=== PATIENT | male | born 1980 | race Caucasian/White ===

== ENCOUNTER 2021-11-01 10:27 | Emergency (ER) | payer BC, SELFPAY ==
--- NOTE | ~2021-11-01 | CT_ITS ---
EXAMINATION: CT abdomen pelvis w con INDICATION: Right lower quadrant pain TECHNIQUE: Computed tomographic images of the abdomen and pelvis were obtained after the administrati on of 100 cc of Omnipaque 350 intravenous contrast. The dose-length product (DLP) was 225.05 mGy-cm. Automated exposure control and iterative reconstruction technique were employed. COMPARISON: None available FINDINGS: Minimal dependent atelectasis is present in the lung bases. The heart size is normal. The l iver, spleen, pancreas, gallbladder, and adrenal glands are normal. The kidneys are unremarkable. No pathologically enlarged abdominal or pelvic lymph nodes are identified. There is no free intraperiton eal gas or evidence of bowel obstruction. The appendix is normal. There is liquid stool throughout mu ch of the colon. There is a greater than normal number of fluid-filled, nondistended small bowel loop s. IMPRESSION: 1. Findings suggestive of enteritis. Normal appendix. Reviewed, dictated and finalized at location A.
[2021-11-01 10:32] VITALS: BP 132/66; PULSE 96; RESP 18; TEMP 36.6; O2SAT 99
[2021-11-01 10:52] LABS: Basophils Absolute Auto 0.1 K/mm3 (0.0-0.1); Basophils Percent Auto 0.3 % (0.2-1.2); Eosinophils Absolute Auto 0.1 K/mm3 (0-0.3); Eosinophils Percent Auto 0.8 % (0-4.4); Hematocrit 43.9 % (42.0-52.0); Hemoglobin 14.5 g/dL (14.0-18.0); Immature Granulocyte Absolute 0.06 K/mm3 (0.00-0.031); Immature Granulocyte Percent A 0.3 % (0-0.5); Lymphocytes Absolute Auto 1.38 K/mm3 (0.9-3.2); Mean Corpuscular Hemoglobin 29.8 pg (26-34); Mean Corpuscular Volume 90.3 fl (80-100); Mean Platelet Volume 8.6 fl (7.4-10.4); Monocytes Absolute Auto 1.3 K/mm3 (0.1-0.6); Monocytes Percent Auto 7.5 % (2.6-8.5); Neutrophils Absolute Auto 14.3 K/mm3 (1.3-6.7); Neutrophils Percent Auto 83.1 % (45.5-73.1); Platelet Count Result 307 k/mm3 (150-375); Red Blood Count 4.86 M/mm3 (4.6-6.20); Red Cell Distribution Width 13.2 % (11.5-14.5); White Blood Count 17.2 K/mm3 (4.5-10.0)
[2021-11-01 11:03] LABS: Appearance Urine Clear (Clear); Bilirubin Urine Negative (Negative); Blood Urine Negative (Negative); Color Urine Yellow (Yellow); Glucose Urine UA Negative (Negative); Ketones Urine Trace mg/dL (Negative); Leukocyte Esterase Ur Negative LEU/UL (Negative); Nitrate Urine Negative (Negative); Protein Urine Negative (Negative); Urobilinogen Urine 0.2 mg/dL (<2.0)
[2021-11-01 11:07] LABS: Alanine Aminotransferase 16 U/L (4-50); Albumin Level 4.8 g/dL (3.5-5.1); Alkaline Phosphatase 57 U/L (38-126); Anion Gap 7 mmol/L (8-16); Aspartate Amino Transferase 27 U/L (17-59); Bilirubin,Total 0.7 mg/dL (0.2-1.3); Blood Urea Nitrogen 17 mg/dL (9-20); Calcium 9.2 mg/dL (8.4-10.2); Carbon Dioxide 24 mmol/L (22-30); Chloride 107 mmol/L (98-107); Estimated CRCL calculation 91 ml/min; Estimated Glomerular Filt Rate > 60; Glucose 102 mg/dL (65-110); Lipase 108 U/L (23-300); Potassium 4.1 mmol/L (3.4-5.0); Sodium 138 mmol/L (137-145)
[2021-11-01 11:11] LABS: Mucus Urine Rare /lpf; RBC Urine 0-2 /hpf (0-2); Squamous Epithelial Cell Urine Rare /hpf (Few); WBC Urine 0-3 /hpf
--- NOTE | 2021-11-01 11:17 | ED.ABDPAIN ---
HPI - Abdominal Pain General Chief Complaint: Abdominal Pain Stated Complaint: abd pain Time Seen by Provider: 11/01/21 11:14 Source: patient and RN notes reviewed Mode of arrival: ambulatory Limitations: no limitations History of Present Illness HPI narrative: Patient is 40 years old white male presents with intermittent sharp, cramp-like pain right lower quadrant at 6:30 AM today. Associated with watery diarrhea up to 3 times so far. Patient reports possible chills and nausea. He denies radiation of pain, aggravating or relieving factors. He smokes, drink and uses marijuana. Related Data Allergies Allergy/AdvReac Type Severity Reaction Status Date / Time Penicillins Allergy Mild Unknown Verified 11/01/21 10:37 Sulfa (Sulfonamide Allergy Unknown Verified 11/01/21 10:37 Antibiotics) Review of Systems Review of Systems: All systems reviewed & are unremarkable except as noted in HPI and below Exam Narrative: General appearance: Well-developed, well-nourished Skin: Normal color Head: Normocephalic, nontraumatic Eyes: Clear conjunctiva ENT: Oropharynx normal, ears normal, nose normal Neck: Supple, nontender Chest and respiratory: Airway patent, no respiratory distress, no accessory muscle use Heart: Regular rate/rhythm Abdomen: Soft, nontender, no organomegaly, quiet bowel sounds Vascular: Normal peripheral pulses, normal capillary refill. Musculoskeletal: Normal range of motion, nontender back Neurologic: Alert and oriented ?3, LEADLIGHTER is normal as tested, no gross motor deficit Course Course Emergency Course: Improving Vital Signs Vital signs: Vital Signs Temperature 36.6 C 11/01/21 10:32 Pulse Rate 96 11/01/21 10:32 Respiratory Rate 18 11/01/21 10:32 Blood Pressure 132/66 11/01/21 10:32 Pulse Oximetry 99 11/01/21 10:32 Temperature 36.6 C 11/01/21 10:32 Pulse Rate 96 11/01/21 10:32 Respiratory Rate 18 11/01/21 10:32 Blood Pressure 132/66 11/01/21 10:32 Pulse Oximetry 99 11/01/21 10:32 MDM - Abdominal Pain Lab Data Result diagrams: 11/01/21 10:38 11/01/21 10:38 Labs: Lab Results 11/01/21 11/01/21 11/01/21 Range/Units 10:38 10:38 10:51 WBC 17.2 H (4.5-10.0) K/mm3 RBC 4.86 (4.6-6.20) M/mm3 Hgb 14.5 (14.0-18.0) g/dL Hct 43.9 (42.0-52.0) % MCV 90.3 (80-100) fl MCH 29.8 (26-34) pg MCHC 33.0 (32-36) g/dl RDW 13.2 (11.5-14.5) % Plt Count 307 (150-375) k/mm3 MPV 8.6 (7.4-10.4) fl Immature Gran % (Auto) 0.3 (0-0.5) % Neut % (Auto) 83.1 H (45.5-73.1) % Lymph % (Auto) 8.0 L (18.3-44.2) % [place] % (Auto) 7.5 (2.6-8.5) % Eos % (Auto) 0.8 (0-4.4) % Baso % (Auto) 0.3 (0.2-1.2) % Lymph # (Auto) 1.38 (0.9-3.2) K/mm3 [place] # (Auto) 1.3 H (0.1-0.6) K/mm3 Eos # (Auto) 0.1 (0-0.3) K/mm3 Baso # (Auto) 0.1 (0.0-0.1) K/mm3 Abs Immat Gran (auto) 0.06 H (0.00-0.031) K/mm3 Absolute Neuts (auto) 14.3 H (1.3-6.7) K/mm3 Absolute Nucleated RBC 0.0 (0.0-0.012) K/mm3 Nucleated RBC % 0.0 (0.0-0.2) % Sodium 138 (137-145) mmol/L Potassium 4.1 (3.4-5.0) mmol/L Chloride 107 (98-107) mmol/L Carbon Dioxide 24 (22-30) mmol/L Anion Gap 7 L (8-16) mmol/L BUN 17 (9-20) mg/dL Creatinine 0.90 (0.7-1.3) mg/dL Estim Creat Clear Calc 91 ml/min Estimated GFR > 60 (59 - ) Glucose 102 (65-110) mg/dL Calcium 9.2 (8.4-10.2) mg/dL Total Bilirubin 0.7 (0.2-1.3) mg/dL AST 27 (17-59) U/L ALT 16 (4-50) U/L Alkaline Phosphatase 57 (38-126) U/L Total Protein 8.0 (6.3-8.2) g/dL Albumin 4.8 (3.5-5.1) g/dL Lipas
[2021-11-01 11:21] LABS: Add Urine Microscopic? YES
[2021-11-01] MEDS: SODIUM CHLORIDE 0.9% IV 1,000 ML 999 ML IV CONT (11:36)
[2021-11-01 12:43] VITALS: BP 122/55; PULSE 68; RESP 16; TEMP 36.8; O2SAT 100
== END 2021-11-01 12:44 | disposition home or self-care (01) ==
PROVIDERS: Emergency Provider Emergency Medicine; PCP Family Medicine
DX: K52.9 Noninfective gastroenteritis and colitis, unspecified (principal)
CPT/HCPCS: 36415; 74177; 80053; 81001; 83690; 85025; 96360; 99284; J7030; Q9967

== ENCOUNTER 2023-12-12 11:02 | Emergency (ER) | payer BC, SELFPAY ==
[2023-12-12 11:03] VITALS: BP 116/64; PULSE 82; RESP 16; TEMP 36.8; O2SAT 100
--- NOTE | 2023-12-12 12:10 | ED.EYEPROB ---
HPI - Eye Problem General Chief complaint: Eye Problems Stated complaint: R eye pain Time Seen by Provider: 12/12/23 12:00 History of Present Illness HPI Narrative: patient is a healthy 43-year-old male here with an eye injury that occurred 2 days ago. He states that 2 days ago he was cooking aches in baking grease and felt a splatter of baking grease go towards the tear duct in his right eye. He notes some immediate pain over the medial aspect of his eye that night, went to sleep and when he woke up he was able to work throughout the day yesterday without any vision changes or significant pain. Yesterday on his way home from work he started having significant tearing and that right eye and when he has a lot of tears he notes that his vision gets blurry. He does note that when his eye is not tearing his vision appears to be normal. He does not were contact lenses. He immediately rinsed this eye out after injury, has not taken anything else or applied anything else to this eye. He does not were contact lenses. His tetanus is within the last 5 years. Related Data Allergies Allergy/AdvReac Type Severity Reaction Status Date / Time Penicillins Allergy Mild Unknown Verified 12/12/23 11:05 Sulfa (Sulfonamide Allergy Unknown Verified 12/12/23 11:05 Antibiotics) Review of Systems Review of Systems: All systems reviewed & are unremarkable except as noted in HPI and below Exam Narrative: GENERAL: Well-appearing, well-nourished, and in no acute distress. HEAD: Normocephalic, atraumatic. EYES: PERRLA and EOMI. Conjunctival injection in the right eye. With fluorescein staining he does have a 1 mm area of uptake around the 3 o'clock position over the iris on the right eye. no lesions appreciated over upper or lower eyelids. He does have a chronic appearing area of erythema over the lateral aspect of his lower eyelid which he states has been present for a while and not due to this injury. Intra-ocular pressure 16 on the right, 17 on the left CHEST: Unlabored respirations HEART: not tachycardic SKIN: Warm, dry, no rash. NEURO: No focal deficits. Alert and oriented x3. Course Course Emergency Course: Chart review performed, patient here with concerns for baking grease splattering into his right eye. Triage vitals normal. One prior visit in our system from 2 years ago for gastroenteritis. patient seen evaluated, nontoxic appearing, conjunctival erythema present, punctate area of fluorescein uptake medial to the pupil on the right. Pain completely resolved with application of tetracaine. Suspect very small corneal ulcer versus abrasion. Will start on eye drops and advised close follow-up with optometry. Tetanus is up-to-date, should not require update here. The results of pertinent diagnostic studies and exam findings were discussed. The patient?s provisional diagnosis and plan of care were discussed with the patient and present family. The patient and/or present family expressed understanding of the diagnosis and plan. The nurse was instructed to provide written instructions and appropriate follow-up information. The patient understands their need and responsibility to obtain additional follow-up as instructed. The risks of medications administered and prescribed were discussed with the patient and family present. Vital Signs Vital signs: Vital Signs Temperature 98.2 F 12/12/23 11:03 Pulse Rate 82 12/12/23 11:03 Respiratory Rate 16 12/12/23 11:03 Blood Pressure 116/64 12/12/23 11:03 Pulse Oximetry 100 12/12/23 11:03 Oxygen Delivery Room Air 12/12/23 11:03 Temperature 98.0 F 12/12/23 13:18 Pulse Rate 76 12/12/23 13:18 Respiratory Rate 16 12/12/23 13:18 Blood Pressure 116/68 12/12/23 13:18 Pulse Oximetry 100 12/12/23 13:18 Oxygen Delivery Room Air 12/12/23 11:03 Discharge Plan Discharge Clinical Impression: Corneal abrasion Qualifiers: Encounter type: initial e
[2023-12-12 13:18] VITALS: BP 116/68; PULSE 76; RESP 16; TEMP 36.7; O2SAT 100
== END 2023-12-12 13:20 | disposition home or self-care (01) ==
PROVIDERS: Emergency Provider Student in an Organized Health Care Education/Training Program; PCP Family Medicine
DX: S05.01XA Injury of conjunctiva and corneal abrasion without foreign body, right eye, initial encounter (principal)
CPT/HCPCS: 99283